=== PATIENT | male | born 1940 | race Caucasian/White ===

== ENCOUNTER 2017-01-09 09:05 | Day surgery (SDC) | payer MEDICARE ==
[~2017-01-09] VITALS: Ht 177.8 cm; Wt 102.1 kg
[~2017-01-09 09:05] MED LIST: ALLO15TA PO; AMLO10TA2 PO; ASPI1TAB PO; FURO40TA2 PO; GLUC1CAP10 PO; LOSA100T36 PO; MAGN400T5 PO; METF10004 PO; VITA100067 PO; [UNRECOGNIZED DRUG - CODE] PO
[2017-01-09] MEDS ORDERED: LR 1,000 ML IV ONE (09:15)
[2017-01-09] MEDS ORDERED: PROPOFOL 200 MG/20 ML VIAL As Ordered ONE (09:52)
[2017-01-09] MEDS ORDERED: ROCURONIUM BROMIDE 50 MG/5 ML VIAL/SYRINGE As Ordered ONE (09:52)
[2017-01-09] MEDS ORDERED: fentaNYL 250 MCG/5 ML INJECTION (J3010) As Ordered ONE (09:52)
[2017-01-09] MEDS ORDERED: LIDOCAINE 2% INJ 100 MG/5 ML SDV (FOR ANES.) As Ordered ONE (09:52)
[2017-01-09] MEDS ORDERED: MIDAZOLAM INJ 2 MG/2 ML VIAL (J2250) As Ordered ONE (09:53)
[2017-01-09] MEDS ORDERED: LIDOCAINE W/EPINEPHRINE 1% 20ML VIAL As Ordered ONE (10:38)
[2017-01-09] MEDS ORDERED: NEOSPORIN TOP OINT 15GM As Ordered ONE (11:35)
[2017-01-09 13:05] VITALS: BP 179/81
--- NOTE | 2017-02-05 06:13 | RO ---
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 PROCEDURE: Wide local excision with primary closure of basal cell carcinoma of the left auricle. SURGEON: David Jauregui MD LAMP TE[employer] AND INSPECTOR: ANESTHESIA: INDICATIONS: This is a patient who is identified as having a suspicious skin lesion on the left superior portion of the auricle and helix. He has history of sun exposure. DESCRIPTION OF PROCEDURE: The patient was brought to the operating room. Intravenous sedation was given. 1% Xylocaine with 1:100,000 epinephrine was injected in the skin around the ear and postauricular area to give anesthesia in the superior part of the auricle. The lesion was identified. It was approximately 1-2 cm in total diameter. An elliptical incision was designed that would give wide margins to the lesion and allow for the best opportunity for primary closure. The skin was incised with a knife and a paddle of skin was removed with scissors sharply down to the mucoperichondrium area. Using scissors, the skin edges were undermined to allow mobilization of the skin. Closure was easily accomplished by using interrupted #4-0 nylon suture in a mattress fashion to close the incision. The specimen was marked for orientation purpose and then sent to the pathologist. Antibiotic ointment was applied to the wound and the patient was then allowed to awaken from intravenous sedation and sent to recovery in satisfactory condition.
== END 2017-01-09 13:36 | disposition home or self-care (01) ==
LOC: M SDC 09:05
PROVIDERS: ATTEND Specialist
DX: C44.219 Basal cell carcinoma of skin of left ear and external auricular canal (principal); I10 Essential (primary) hypertension; E11.9 Type 2 diabetes mellitus without complications; M62.81 Muscle weakness (generalized); Z88.8 Allergy status to other drugs, medicaments and biological substances; Z79.899 Other long term (current) drug therapy; Z79.82 Long term (current) use of aspirin; Z79.84 Long term (current) use of oral hypoglycemic drugs
CPT/HCPCS: 11642; 88305; J2250; J3010